=== PATIENT | female | born 1960 | race American Indian/Alaskan Native ===

== ENCOUNTER 2017-02-17 06:02 | Day surgery (SDC) | payer OTHER ==
[2017-02-17] MEDS ORDERED: NACL 0.9% 1000 ML 1,000 ML IV SCH (07:00)
--- NOTE | 2017-02-17 07:27 | Anesthesia Day of Surgery ---
Anesthesia Day of Surgery - Day of Surgery Patient Examined: Yes Patient H&P Reviewed: Yes Patient is NPO: Yes
--- NOTE | 2017-02-17 07:28 | Anesthesia Consultation ---
Anesthesia Consult and Med Hx Date of service: 02/17/17 - Airway Anesthetic Teeth Evaluation: Good ROM Head & Neck: Adequate Mental/Hyoid Distance: Adequate Mallampati Class: Class II Intubation Access Assessment: Probably Good - Pulmonary Exam CTA: Yes - Cardiac Exam Cardiac Exam: RRR - Pre-Operative Health Status ASA Pre-Surgery Classification: ASA2 Proposed Anesthetic Plan: MAC - Pulmonary Hx Smoking: No Hx Asthma: No - Cardiovascular System Hx Hypertension: Yes (high cholesterol) Hx Heart Attack/AMI: No - Central Nervous System Hx Seizures: No CVA: No - Endocrine Hx Renal Disease: No Hx Liver Disease: No Hx Non-Insulin Dependent Diabetes: No - Hematic Hx Anemia: No Hx Sickle Cell Disease: No - Other Systems Hx Cancer: No - Additional Comments Anesthesia Medical History Comments: NAC
[2017-02-17] MEDS ORDERED: DIPRIVAN 10 MG/ML IV ONE ×2 (07:31)
[2017-02-17] MEDS ORDERED: WATER FOR IRRIG STERILE ONE (07:34)
[2017-02-17] MEDS ORDERED: WATER FOR IRRIG STERILE IR ONE (07:34)
--- NOTE | 2017-02-17 08:09 | Short Stay Summary ---
Short Stay Documentation - Allergies and Medications Current Medications: Allergies No Known Allergies Allergy (Verified 02/15/17 13:42) Home Medications Medication Instructions Recorded Confirmed Last Taken Type Crestor 1 tab PO HS 02/15/17 02/17/17 02/16/17 History Triamterene/Hydrochlorothiazid 25 mg PO DAILY 02/15/17 02/17/17 02/16/17 History Active Medications Sodium Chloride (Nacl 0.9% 1000 Ml) 1,000 mls @ 50 mls/hr IV DIRECT SHIRIN Last Admin: 02/17/17 07:16 Dose: 50 mls/hr - Brief post op/procedure progress note Date of procedure: 02/17/17 Pre-op diagnosis: Colon cancer screening Post-op diagnosis: same (1. Diverticulosis coli 2. Internal hemorrhoids 3. Rectal polyps) Procedure: Colonoscopy with biopsy Anesthesia: MAC Findings: as above Surgeon: XIOMARA DURAN Estimated blood loss: none Pathology: list (1. Rectal polyps) Specimen disposition: to lab Condition: stable - Disposition Condition at discharge: Stable Disposition: DC-01 TO HOME OR SELFCARE Short Stay Discharge Plan Activity: no restrictions Weight Bearing Status: Full Weight Bearing Diet: regular (``````````````), low salt Follow up with: JENNIFER MIRANDA MD [Primary Care Provider] - 7 Days
[2017-02-17 08:32] VITALS: BP 142/88
--- NOTE | 2017-02-17 10:37 | Post Anesthesia Evaluation ---
- Post Anesthesia Evaluation Patient Participated: Yes Airway Patent: Yes Stable Respiratory Function: Yes Nausea/Vomiting: No Temp > 96.8F: Yes Pain Manageable: Yes Adequeate Hydration: Yes Anesthesia Complications: No Block Receding Appropriately: Not Applicable Patient on Ventilator: No
[2017-02-17] MEDS ORDERED: XYLOCAINE MPF 2% ONE (17:30)
== END 2017-02-17 06:03 | disposition home or self-care (01) ==
LOC: GIO 06:02
PROVIDERS: ATTEND Internal Medicine Gastroenterology
DX: Z12.12 Encounter for screening for malignant neoplasm of rectum (principal); K62.1 Rectal polyp; K57.30 Diverticulosis of large intestine without perforation or abscess without bleeding; K64.0 First degree hemorrhoids; I10 Essential (primary) hypertension; E78.00 Pure hypercholesterolemia, unspecified; Z79.899 Other long term (current) drug therapy
CPT/HCPCS: 45380; 88305; J2704; J7030

== ENCOUNTER 2017-04-14 09:40 | Outpatient (CLI) | payer OTHER ==
--- NOTE | 2017-04-14 11:15 | Mammography Report ---
Bilateral mammogram and left breast ultrasound: The patient presents with a palpable finding in the inferior left breast. A marker is placed over the area of concern and routine mammographic images are obtained. There is a heterogeneous and symmetrically distributed fibroglandular pattern bilaterally. There is no focal mass nor architectural distortion in either breast and specifically there is no abnormality noted related to the marker. Scattered benign-appearing calcifications are present in both breasts. Targeted breast ultrasound on the left at 6:00 failed to identify any echogenic abnormality. CAD used. Impression: No abnormal findings. Recommendation: Clinical followup. Annual mammogram followup. Any additional evaluation at this time should be based on your concern. BI-RADS CATEGORY: 1 = Negative ACR BI-RADS MAMMOGRAPHIC CODES: 0 = Needs additional imaging evaluation; 1 = Negative; 2 = Benign; 3 = Probably benign; 4 = Suspicious; 5 = Malignant; 6 = Known biopsy-proven malignancy COMMENT: 1. Dense breast tissue, i.e., adenosis, fibrocystic changes, etc., may obscure an underlying neoplasm. 2. Approximately 10% of cancers are not detected with mammography. 3. A negative mammography report should not delay biopsy if a clinically suspicious mass is present.
== END 2017-04-14 09:41 | disposition home or self-care (01) ==
LOC: MAMMO 09:40
PROVIDERS: ATTEND Internal Medicine
DX: R92.1 Mammographic calcification found on diagnostic imaging of breast (principal); I10 Essential (primary) hypertension; E78.00 Pure hypercholesterolemia, unspecified
CPT/HCPCS: 76642; G0204; 77066

== ENCOUNTER 2018-12-04 17:10 | Emergency (ER) | payer OTHER ==
--- NOTE | 2018-12-04 17:21 | Emergency Department Report ---
Chief Complaint: GI Bleed Stated Complaint: BLOOD IN STOOL Time Seen by Provider: 12/04/18 17:17 - HPI History of Present Illness: This is a 58 yo. female that presents with rectal bleed since today. Patient states she had a bowel movement this afternoon and noticed large blood clots in toilet. Denies pain, constipation, hemorrhoids. - Exam Vital Signs: Vital Signs 12/04/18 17:17 Temperature 97.7 F Pulse Rate 97 H Respiratory 16 Rate Blood Pressure 151/98 O2 Sat by Pulse 100 Oximetry MSE screening note: Focused history and physical exam performed. Due to findings the following was ordered: Labs Main ED for further evaluation. ED Disposition for MSE Condition: Stable
--- NOTE | 2018-12-04 17:56 | Emergency Department Report ---
HPI - General Chief Complaint: GI Bleed Time Seen by Provider: 12/04/18 17:17 - HPI HPI: 58-year-old -[place] female presents to the emergency department from home with complaint of rectal bleeding with some clots. She had a bowel movement this morning that was normal. She went to an appointment when she came home she had 2 further bowel movements. The first one just shows some blood in the second one had clots. She denies any abdominal or rectal pain. She has a past medical history of high cholesterol. She denies any blood thinners or excessive NSAID or aspirin use. Her primary care physician is Dr. Miranda. ED Past Medical Hx - Past Medical History Previous Medical History?: Yes Hx Hypertension: Yes (high cholesterol) Hx Heart Attack/AMI: No Hx Liver Disease: No Hx Renal Disease: No Hx Sickle Cell Disease: No Hx Seizures: No Hx Asthma: No Additional medical history: hyperlipidemia - Surgical History Past Surgical History?: No - Social History Smoking Status: Never Smoker Substance Use Type: None - Medications Home Medications: Home Medications Medication Instructions Recorded Confirmed Last Taken Type Crestor 1 tab PO HS 02/15/17 02/17/17 02/16/17 History Triamterene/Hydrochlorothiazid 25 mg PO DAILY 02/15/17 02/17/17 02/16/17 History ED Review of Systems ROS: Stated complaint: BLOOD IN STOOL Other details as noted in HPI Comment: All other systems reviewed and negative Constitutional: denies: chills, fever Eyes: denies: eye pain, vision change ENT: denies: ear pain, throat pain Respiratory: denies: cough, shortness of breath Cardiovascular: denies: chest pain, palpitations Gastrointestinal: other (rectal bleeding). denies: abdominal pain, vomiting Genitourinary: denies: dysuria, frequency Musculoskeletal: denies: back pain, arthralgia Skin: denies: rash, lesions Neurological: denies: headache, weakness Physical Exam - Physical Exam Vital Signs: Vital Signs 12/04/18 17:17 Temperature 97.7 F Pulse Rate 97 H Respiratory 16 Rate Blood Pressure 151/98 O2 Sat by Pulse 100 Oximetry Physical Exam: GENERAL: The patient is well-developed well-nourished. HEENT: Normocephalic. Atraumatic. Patient has moist mucous membranes. EYES: Extraocular motions are intact. Pupils are equal and reactive to light bilaterally. NECK: Supple. Trachea is midline. CHEST/LUNGS: Clear to auscultation. There is no respiratory distress noted. HEART/CARDIOVASCULAR: Regular. There is no tachycardia. There is no obvious murmur. ABDOMEN: Abdomen is soft, nontender. Patient has normal bowel sounds. There is no abdominal distention. SKIN: Skin is warm and dry. NEURO: The patient is awake, alert, and oriented. The patient is cooperative. The patient has no focal neurologic deficits. The patient has normal speech. MUSCULOSKELETAL: There is no tenderness or deformity. There is no limitation range of motion. There is no evidence of acute injury. RECTAL: Patient is to non-thrombosed external hemorrhoids. No gross blood on examination. Stool is positive on guaiac testing. ED Course Vital Signs 12/04/18 17:17 Temperature 97.7 F Pulse Rate 97 H Respiratory 16 Rate Blood Pressure 151/98 O2 Sat by Pulse 100 Oximetry - Consultations Consultation #1: 12/05/18 00:24 I spoke with the paster supervisor vocational ed instructor, Dr. Cornejo, who says that he is fine either with the patient following up outpatient on Friday where he would be happy to consult if the patient is to be admitted to the hospital. ED Medical Decision Making - Lab Data Result diagrams: 12/04/18 17:42 12/04/18 17:42 - Medical Decision Making This patient presents to the hospital after having 2 episodes of rectal bleeding prior to arrival. One time she was concerned because there were clots. She has no rectal pain and no abdominal pain. Vital signs stable throughout her ED course. Labs are mostly unremarkable except for some hypokalemia which was re placed with potassium chloride and this may be secondary to her triamterene and she takes for hypertension. On examination, the patient does have some nonthrombosed external hemorrhoids and has some stool that is positive on guaiac testing. No gross blood at this time. There is been no further bowel movements while in the emergency department. Patient appears stable and safe for discharge home at this time. She's been given a referral for [facility] for follow-up. She will return immediately with any return or worsening of her symptoms, or if any acute distress. - Differential Diagnosis hemorrhoids, malignancy, diverticulosis Critical Care Time: No Critical care attestation.: If time is entered above; I have spent that time in minutes in the direct care of this critically ill patient, excluding procedure time. ED Disposition Clinical Impression: Rectal bleeding, Hypokalemia Disposition: TO HOME OR SELFCARE Is pt being admited?: No Condition: Stable Instructions: Hemorrhoids (ED), Rectal Bleeding (ED), Hypokalemia (ED) Additional Instructions: Please follow up with gastroenterology on Friday. Return to the emergency department immediately with any further rectal bleeding, worsening of your symptoms, if any acute distress. Referrals: FITO CORNEJO MD [Staff Physician] - 2-3 Days JENNIFER MIRANDA MD [Primary Care Provider] - 2-3 Days Forms: Accompanied Note, Work/School Release Form(ED) Time of Disposition: 23:06
[2018-12-04 18:10] LABS: Basophils % (Auto) 0.7 % (0.0-1.8); Eosinophils # (Auto) 0.1 K/mm3 (0.0-0.4); Eosinophils % (Auto) 1.2 % (0.0-4.3); Hematocrit 39.9 % (30.3-42.9); Hemoglobin 13.9 gm/dl (10.1-14.3); Lymphocytes # (Auto) 2.4 K/mm3 (1.2-5.4); Lymphocytes % (Auto) 40.3 % (13.4-35.0); Mean Corpuscular HGB Conc 35 % (30-34); Mean Corpuscular Volume 87 fl (79-97); Monocytes # (Auto) 0.6 K/mm3 (0.0-0.8); Monocytes % (Auto) 9.4 % (0.0-7.3); Platelet Count 316 K/mm3 (140-440); Red Blood Count 4.61 M/mm3 (3.65-5.03); Red Cell Distribution Width 14.5 % (13.2-15.2)
[2018-12-04 18:22] LABS: INR 0.92 (0.87-1.13)
[2018-12-04 18:23] LABS: Partial Thromboplastin Time 25.7 Sec. (24.2-36.6)
[2018-12-04 18:38] LABS: BUN/Creatinine Ratio 24; Blood Urea Nitrogen 17 mg/dL (7-17); Calcium 9.9 mg/dL (8.4-10.2); Hemolysis Index 3
[2018-12-04 18:43] LABS: Alanine Aminotransferase 29 units/L (7-56); Albumin 4.3 g/dL (3.9-5)
[2018-12-04 18:45] LABS: Bilirubin,Direct < 0.2 mg/dL (0-0.2)
[2018-12-04] MEDS ORDERED: K-DUR PO ONE (18:51)
[2018-12-04] MEDS: KCL 10MEQ/100ML 10 MEQ/100 ML BAG IV SCH ×2 (20:36→21:57)
[2018-12-05 00:15] VITALS: BP 145/80
== END 2018-12-05 00:15 | disposition home or self-care (01) ==
LOC: ED 17:10
DX: K62.5 Hemorrhage of anus and rectum (principal); E87.6 Hypokalemia; I10 Essential (primary) hypertension; E78.00 Pure hypercholesterolemia, unspecified
CPT/HCPCS: 36415; 80048; 80076; 85025; 85610; 85730; 86850; 86900; 86901; 96365; 96366; 99283; J3480

== ENCOUNTER 2019-08-06 06:35 | Day surgery (SDC) | payer OTHER ==
[2019-08-06] MEDS ORDERED: SODIUM CHLORIDE 0.9% 1000 ML 1,000 ML IV SCH (07:30)
--- NOTE | 2019-08-06 07:58 | Anesthesia Consultation ---
Anesthesia Consult and Med Hx Date of service: 08/06/19 - Airway Anesthetic Teeth Evaluation: Good ROM Head & Neck: Adequate Mental/Hyoid Distance: Adequate Mallampati Class: Class II Intubation Access Assessment: Probably Good - Pre-Operative Health Status ASA Pre-Surgery Classification: ASA2 Proposed Anesthetic Plan: MAC - Pulmonary Hx Smoking: No Hx Asthma: No Hx Respiratory Symptoms: No SOB: No COPD: No Home Oxygen Therapy: No Hx Pneumonia: No Hx Sleep Apnea: No - Cardiovascular System Hx Hypertension: Yes (high cholesterol) Hx Coronary Artery Disease: No Hx Heart Attack/AMI: No Hx Angina: No Hx Percutaneous Transluminal Coronary Angioplasty (PTCA): No Hx Cardia Arrhythmia: No Hx Pacemaker: No Hx Internal Defibrillator: No Hx Valvular Heart Disease: No Hx Heart Murmur: No Hx Peripheral Vascular Disease: No - Central Nervous System Hx Neuromuscular Disorder: No Hx Seizures: No CVA: No Hx Back Pain: No Hx Psychiatric Problems: No - Gastrointestinal Hx Ulcer: No Hx Gastroesophageal Reflux Disease: No - Endocrine Hx Renal Disease: No Hx End Stage Renal Disease: No Hx Cirrhosis: No Hx Liver Disease: No Hx Insulin Dependent Diabetes: No Hx Non-Insulin Dependent Diabetes: No Hx Thyroid Disease: No Hx Hypothyroidism: No Hx Hyperthyroidism: No - Hematic Hx Anemia: No Hx Sickle Cell Disease: No - Other Systems Hx Alcohol Use: No Hx Substance Use: No Hx Cancer: No Hx Obesity: No
--- NOTE | 2019-08-06 07:59 | Anesthesia Day of Surgery ---
Anesthesia Day of Surgery - Day of Surgery Patient Examined: Yes Patient H&P Reviewed: Yes Patient is NPO: Yes
[2019-08-06] MEDS ORDERED: LIDOCAINE MPF (2%) 20 MG/1 ML VIAL 5 ML ONE (08:00)
[2019-08-06] MEDS ORDERED: WATER FOR IRRIG STERILE 250 ML BOTTLE IR ONE (08:20)
[2019-08-06] MEDS ORDERED: PROPOFOL 200 MG/20 ML VIAL IV ONE ×2 (08:23)
--- NOTE | 2019-08-06 08:50 | Short Stay Summary ---
Short Stay Documentation Date of service: 08/06/19 Narrative H&P: The patient presents for diagnostic colonoscopy for hematochezia - History Past Medical History: hypertension, hyperlipidemia Past Surgical History: No surgical history Social history: no significant social history, , lives with family - Allergies and Medications Current Medications: Allergies No Known Allergies Allergy (Verified 12/04/18 17:11) Home Medications Medication Instructions Recorded Confirmed Last Taken Type Crestor 1 tab PO HS 02/15/17 08/06/19 03/29/19 History Triamterene/Hydrochlorothiazid 25 mg PO DAILY 02/15/17 08/06/19 08/06/19 05:00 History Pravastatin [Pravachol] 40 mg PO QHS 08/06/19 08/06/19 08/05/19 19:00 History Active Medications Sodium Chloride (Nacl 0.9% 1000 Ml) 1,000 mls @ 50 mls/hr IV DIRECT SHIRIN Last Admin: 08/06/19 07:47 Dose: 50 mls/hr Documented by: - Physical exam General appearance: no acute distress, well-nourished Integumentary: no rash, no growths, no abnormal pigmentation HEENT: Atraumatic, PERRLA, EOMI, Mucous membr. moist/pink Lungs: Clear to auscultation, Normal air movement Breasts: deferred Heart: Regular rate, Normal S1, Normal S2, No murmurs Gastrointestinal: normoactive bowel sounds, no tenderness, no distended, no masses, no guarding, no organomegaly Rectal Exam: normal exam-external/orifice, no mass Extremities: no ischemia, pulses intact, pulses symmetrical, No edema, normal temperature, normal color, Full ROM Neurological: Normal gait, Normal speech, Strength at 5/5 X4 ext, Normal tone, Sensation intact, Cranial nerves 3-12 NL - Brief post op/procedure progress note Date of procedure: 08/06/19 Findings: see dictation Estimated blood loss: none Pathology: list (cecal polyp) Specimen disposition: to lab Condition: stable - Disposition Condition at discharge: Good Disposition: DC-01 TO HOME OR SELFCARE - Discharge Diagnoses (1) Hematochezia Status: Acute Short Stay Discharge Plan Activity: other (no driving for 24 hours) Weight Bearing Status: Full Weight Bearing Diet: regular Follow up with: JENNIFER MIRANDA MD [Primary Care Provider] - 7 Days
--- NOTE | 2019-08-06 08:52 | Operative Report ---
Operative Report Operative Report: Date of procedure: 08/06/2019 Preprocedure diagnosis: Hematochezia Post procedure diagnosis: Diminutive cecal polyp, mild diverticulosis of the descending colon and sigmoid colon. Procedure: Colonoscopy to the cecum with cold snare polypectomy of the cecal polyp Endoscopist: Dr. Gonzalez Anesthesia: Monitored anesthesia care per anesthesia department Estimated blood loss: 0 Medications: Monitored anesthesia care. See separate report by anesthesia for details. After careful discussion of the nature and purpose of the procedure as well as details of the technique risks benefits and alternatives the patient gave consent. Please see recent history and physical from the office. The patient was placed in the left lateral decubitus position and medicated per anesthesia. A rectal exam was performed sphincter tone was normal there were no masses palpable. The Olympus colonoscope was passed transanally and advanced under continuous direct vision without difficulty to the cecum. The colon was well prepared. The cecum revealed a 5 mm sessile polyp. The polyp was removed with cold snare resection and retrieved by suction. The ascending colon revealed a few scattered diverticula but otherwise was normal and on forward and retroflexed views. The transverse colon and descending colon were normal. A few diverticula were present in the sigmoid colon. The rectum was normal on forward and retroflexed views. The procedure was well-tolerated overall and the patient was observed in recovery. Conclusions: Mild diverticulosis of the descending colon and sigmoid colon. Diminutive cecal polyp.. Plan: Await pathology. Repeat colonoscopy in 5 years if the polyp is adenomatous. Signed electronically: Alexander Gonzalez M.D.
[2019-08-06 10:00] VITALS: BP 140/81
== END 2019-08-06 10:00 | disposition home or self-care (01) ==
LOC: GIO 06:35
PROVIDERS: ATTEND Internal Medicine Gastroenterology
DX: K92.1 Melena (principal); D12.0 Benign neoplasm of cecum; K57.30 Diverticulosis of large intestine without perforation or abscess without bleeding; K64.8 Other hemorrhoids; E78.00 Pure hypercholesterolemia, unspecified; I10 Essential (primary) hypertension; Z79.899 Other long term (current) drug therapy
CPT/HCPCS: 45385; 88305; J2704; J7030

== ENCOUNTER 2020-08-15 10:29 | Outpatient (CLI) | payer OTHER ==
--- NOTE | 2020-08-15 11:47 | Mammography Report ---
DIGITAL DIAGNOSTIC MAMMOGRAM WITH TOMOSYNTHESIS WITHOUT CAD, 08/15/2020 CLINICAL INFORMATION / INDICATION: History 2 months ago of left palpable abnormality, no longer felt TECHNIQUE: Digital bilateral 2D and 3D mammography with tomosynthesis was obtained in the craniocaud al and mediolateral oblique projections. Computer-Aided Detection (CAD) analysis was not available f or interpretation of this study. COMPARISON: 07/14/2018 FINDINGS: Breast Density: The breasts are heterogeneously dense, which may obscure small masses. No dominant mass, suspicious calcifications, or architectural distortion in either breast. Bilateral skin lesions and benign-appearing calcifications are again noted. No significant abnormalit ies are seen in the reported prior area of palpable concern in 2 months ago on the left anteriorly. IMPRESSION: No mammographic evidence of malignancy. Follow up recommendation: Clinical follow-up of patient's prior complaint is suggested. If this retur ns as a complaint, ultrasound could be performed. BI-RADS Category 2: Benign. A "normal" or negative report should not discourage follow up or biopsy of a clinically significant f inding. A written summary of these findings will be mailed to the patient. The patient will be entered into a mammography reporting system which will generate a reminder letter for the patient's next appointmen t at the appropriate interval. The [employer] recommends yearly mammograms starting at age 40 and continuing as l chip as a woman is in good health. Breast MRI is recommended for women with an approximate 20-25% or greater lifetime risk of breast cancer, including women with a strong family history of breast or ova vaishnavi cancer or who have been treated for Hodgkin's disease. Signer Name: Leobardo Jones MD Signed: 08/15/2020 11:42 AM Workstation Name: [id number]
--- NOTE | 2020-08-15 12:52 | Ultrasound Report ---
ULTRASOUND BREAST LEFT LIMITED, 08/15/2020 CLINICAL INFORMATION / INDICATION: Left breast palpable abnormality 2 months ago. TECHNIQUE: Targeted ultrasound evaluation was performed of the area of interest. COMPARISON: Bilateral mammography with tomographic imaging today, left breast ultrasound 04/14/2017 FINDINGS: In the retroareolar area there appear to be multiple moderately dilated ducts containing internal ech ogenicity. No increased vascularity is seen. In some of these areas is difficult to exclude true nodu larity though this may just be debris in the ducts. This involves multiple ducts. Additionally, mild nodularity which is not clearly ductal is seen in the 1132 12:00 position, 5 cm from the nipple, karolina uring up to 6 mm but having a benign type of appearance without shadowing or vascularity. Review of the mammogram with tomographic imaging performed this morning shows no clear correlate. The technologist indicated that level the patient denied history of nipple discharge, a cloudy yellow discharge was seen from the nipple during the ultrasound examination. IMPRESSION: 1. Multiple retroareolar dilated ducts show it least internal debris though the presence of true nodu larity cannot be excluded in this area. 2. Probably benign nodularity in the 11:30 to 12:00 position, 5 cm from the nipple. Follow up recommendation: Given the multiple ducts involved I would recommend breast MR BI-RADS Category 0: Incomplete. Needs additional imaging evaluation and/or prior mammograms for jamilah aviles. A normal or "negative" report should not preclude biopsy or follow-up of a clinically suspicious find ing. Signer Name: Leobardo Jones MD Signed: 08/15/2020 12:48 PM Workstation Name: [id number]
== END 2020-08-15 10:30 | disposition home or self-care (01) ==
LOC: SPVWC 10:29
PROVIDERS: ATTEND Surgery
DX: R92.1 Mammographic calcification found on diagnostic imaging of breast (principal); N63.20 Unspecified lump in the left breast, unspecified quadrant
CPT/HCPCS: 76641; 77066; G0279

== ENCOUNTER 2020-09-13 08:12 | Outpatient (CLI) | payer OTHER ==
--- NOTE | 2020-09-13 09:50 | Magnetic Resonance Report ---
MRI BREAST BILATERAL WITH AND WITHOUT CONTRAST, 09/13/2020 CLINICAL INFORMATION / INDICATION: Left breast lump, abnormal mammogram. Dilated left intramammary du cts and left breast nodularity on prior ultrasound. TECHNIQUE: Axial T1 and T2-weighted fat sat images were obtained precontrast. Gadolinium-based contra st was injected intravenously and serial axial T1 weighted images with fat saturation were obtained. 3-D MIP projections, kinetic analysis, and subtraction imaging were utilized to evaluate. A dedicated 8-channel breast coil was used for image acquisition. COMPARISON: 08/15/2020 FINDINGS: BREAST DENSITY: Heterogeneously dense. BACKGROUND ENHANCEMENT: Moderate background enhancement within both breasts. RIGHT BREAST: No dominant mass or suspicious area of enhancement in the right breast. Scattered benig n-appearing nodularity is noted along with multiple cysts without suspicious features located along t he lower half of the breast measuring up to 5 mm. Prominent ducts are seen along the anterior depth o f the right breast without suspicious enhancement or distinct intraductal lesions. LEFT BREAST: No dominant mass or suspicious area of enhancement in the left breast. The previously de scribed 5 mm anterior/middle depth nodule in the 12:00 position is again seen without suspicious enha ncement. Other scattered benign-appearing subcentimeter nodularity is present. Multiple mildly dilate d ducts are seen along the 2-3:00 positions anterior depth without suspicious enhancement or suspicio us intraductal lesions. These findings correlate with the prior ultrasound findings. AXILLAE: No pathologically enlarged axillary lymph nodes. ADDITIONAL FINDINGS: Limited imaging of the thorax and upper abdomen demonstrates no focal abnormalit y. IMPRESSION: 1. No MRI evidence of malignancy. 2. Benign-appearing mild left intramammary ductal dilatation without an associated suspicious intradu ctal lesion. A follow-up left breast ultrasound in 6 months is recommended. 3. Additional findings as above. Follow up recommendation: Short term follow up in 6 months. BI-RADS Category 3: Probably Benign. Followup in 6 months. Signer Name: Jose Waters MD Signed: 09/13/2020 9:45 AM Workstation Name: [id number]
== END 2020-09-13 08:13 | disposition home or self-care (01) ==
LOC: SPVIMAG 08:12
PROVIDERS: ATTEND Surgery
DX: N60.01 Solitary cyst of right breast (principal); R92.8 Other abnormal and inconclusive findings on diagnostic imaging of breast; R59.1 Generalized enlarged lymph nodes; N63.21 Unspecified lump in the left breast, upper outer quadrant
CPT/HCPCS: A9577; C8908; 77049

== ENCOUNTER 2021-02-13 08:33 | Outpatient (CLI) | payer OTHER ==
--- NOTE | 2021-02-13 09:48 | Ultrasound Report ---
LEFT BREAST ULTRASOUND INDICATION: Follow-up evaluation of findings noted previously in the left breast. COMPARISON: 09/13/2020, 08/15/2020. FINDINGS: A targeted ultrasound of multiple areas which were noted previously in the left breast was performed. Overall, there is no interval detrimental change when compared to the 08/15/2020 exam. Additionally, an MRI showed no suspicious findings within this region. Specific lesions are as follows: -Left breast 12:00, 5 cm from the nipple: Currently measures 6 x 9 x 5 mm, not significantly changed in size. -Left breast 11:30, 5 cm from the nipple: Currently measures 4 x 6 x 3 mm, not significantly changed in size. -Left breast 2:00 retroareolar: Currently measures 5 x 7 x 4 mm, decreased in size. -Left breast 2:00 retroareolar: Currently measures 3 x 7 x 4 mm, decreased in size. Multiple additional lesions noted previously at the 2:00 position, 1 cm from the nipple, breast at 3: 00 position, 2 cm from the nipple, 4:00 position, 5 cm from the nipple, and left breast retroareolar are not identified on the current exam. No new suspicious finding is identified. A targeted ultrasound of the left axilla shows benign appearing lymph nodes. IMPRESSION: No interval detrimental change in previously noted multiple lesions within the left breast. Some of t hese have resolved and some are decreased in size which would support a benign etiology. No new suspi cious finding is identified. Patient will be due for annual bilateral mammogram in 6 months and a rep eat follow-up left breast ultrasound is recommended at that time. BI-RADS Category 3: Probably Benign. A "normal" or negative report should not discourage follow up or biopsy of a clinically significant f inding. A written summary of these findings will be mailed to the patient. FURTHER INFORMATION: According to the [employer], yearly mammograms are recommend ed starting at age 40 and continuing as long as a woman is in good health. Breast MRI is recommended for women with an approximately 20-25% or greater lifetime risk of breast cancer, including women wi th a strong family history of breast or ovarian cancer and women who have been treated for Hodgkin's disease. Signer Name: Emmanuel Lay MD Signed: 02/13/2021 9:44 AM Workstation Name: [id number]
== END 2021-02-13 08:34 | disposition home or self-care (01) ==
LOC: SPVWC 08:33
PROVIDERS: ATTEND Surgery
DX: N63.21 Unspecified lump in the left breast, upper outer quadrant (principal)